=== PATIENT | female | born 1965 | race Hispanic/Latino ===

== ENCOUNTER 2016-11-24 07:37 | Day surgery (SDC) | payer MEDICAID ==
[2016-10-30 09:45] VITALS: BMI 33.8
[2016-11-24] MEDS ORDERED: Lidocaine 1% Inj (20ml) ONE (11:11)
[2016-11-24] MEDS ORDERED: Bupivacaine HCl 0.25% PF (10 ml) Inj ONE ×2 (11:11)
[2016-11-24] MEDS ORDERED: Lactated Ringer's 1,000 ML IV ONE (11:13)
[2016-11-24] MEDS ORDERED: Midazolam 2 MG/2 ML VIAL ONE (11:15)
[2016-11-24] MEDS ORDERED: Propofol 10 mg/ml Inj (20 ML) ONE (11:16)
[2016-11-24] MEDS ORDERED: Lidocaine Hydrochloride 5 ML INJ ONE (11:18)
[2016-11-24] MEDS ORDERED: Doxycycline 100 mg Inj ONE (11:20)
[2016-11-24] MEDS ORDERED: HYDROmorphone 0.5 mg/0.5 ml ISec IVP PRN (11:33)
[2016-11-24] MEDS ORDERED: Oxycodone/Acetaminophen 5/325 mg Tab PO PRN (11:45)
[2016-11-24 13:15] VITALS: BP 112/80; PULSE 69; RESP 18; TEMP 98; O2SAT 99
--- NOTE | 2016-11-24 19:17 | OP ---
PROCEDURE DATE: 11/24/2016 PREOPERATIVE DIAGNOSIS: A venous neoplasm of the right leg. POSTOPERATIVE DIAGNOSIS: A venous neoplasm of the right leg. PROCEDURES PERFORMED: 1. Wide deep excision of a 5 cm veno-venous neoplasm of the right leg (46392). 2. Repair of blood vessel (55850). 3. Adjacent tissue transfer closure 32 sq cm ([id number]). 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 It has become increasingly painful. She now will undergo a wide deep excision. SURGEON: Paul Iniguez MD DESCRIPTION OF PROCEDURE: The patient was taken to the operating room. IV sedation was administered and the right leg was prepped and draped. A generous elliptical incision was made surrounding the mass. It was completely dissected and treated, the fascia layer removed. Bleeding was controlled using the Bovie. A larger blood vessel was repaired and the wound was irrigated with saline. Generous tissue flaps were raised using the Bovie and the underlying tissue was widely mobilized and adjacent tissue transfer closure measuring 32 sq cm was performed by using multiple layers of Monocryl, subcuticular Monocryl and glue. The patient tolerated the procedure well, returned to recovery room in stable condition. Paul Iniguez MD
== END 2016-11-24 13:51 | disposition home or self-care (01) ==
LOC: C.SDS 07:37
PROVIDERS: ATTEND Surgery
DX: D48.7 Neoplasm of uncertain behavior of other specified sites (principal)
CPT/HCPCS: 14301; 27616; 35226; 88307; J2250; J2704; J3010; J7120